=== PATIENT | male | born 1950 | race Caucasian/White ===

== ENCOUNTER 2022-09-05 10:45 | Day surgery (SDC) | payer OTHER ==
[~2022-09-05] VITALS: Ht 170.2 cm; Wt 76.3 kg
[~2022-09-05 10:45] MED LIST: ACETAMINOPHEN 500 MG TABLET PO ONE; CEFAZOLIN SOD 2 GM in D5W 50 ML IV ONE; GABAPENTIN 300 MG CAPSULE PO ONE
[2022-09-05] MEDS ORDERED: ACETAMINOPHEN 500 MG TABLET ONE (11:41)
[2022-09-05] MEDS ORDERED: GABAPENTIN 300 MG CAPSULE ONE (11:41)
[2022-09-05] MEDS ORDERED: NS IRRIG SOLN 1000 ML IR ONE (13:00)
[2022-09-05] MEDS ORDERED: ePHEDrine sulfate 50 MG/ML VIAL ONE (13:00)
[2022-09-05] MEDS ORDERED: SEVOFLURANE 15 MIN GAS INH ONE (13:00)
[2022-09-05] MEDS ORDERED: fentaNYL CITRATE/PF 100 MCG/2 ML AMP ONE (13:00)
[2022-09-05] MEDS ORDERED: ONDANSETRON HCL 4 MG/2 ML VIAL ONE (13:00)
[2022-09-05] MEDS ORDERED: ROCURONIUM BROMIDE 10 MG/ML (ZEMURON) ONE (13:00)
[2022-09-05] MEDS ORDERED: DEXAMETHASONE SOD PHOSPHATE 4 MG/ML VIAL ONE (13:00)
[2022-09-05] MEDS ORDERED: PROPOFOL 200MG/ 20ML VIAL (DIPRIVAN) IV ONE (13:00)
[2022-09-05] MEDS ORDERED: LR 1,000 ML IV.SOLN IV ONE (13:00)
[2022-09-05] MEDS ORDERED: SUGAMMADEX SODIUM 200 MG/2 ML VIAL IV ONE (13:00)
[2022-09-05 13:38] VITALS: O2SAT 98
[2022-09-05] MEDS ORDERED: LIDOCAINE/EPI MPF 1%1:200000 30 ML VIAL INJ ONE (13:40)
[2022-09-05] MEDS ORDERED: BUPIVACAINE /PF 0.25% 30 ML VIAL INJ ONE (13:42)
[2022-09-05] MEDS ORDERED: CEFAZOLIN SOD 2 GM in D5W 50 ML IV SCH (14:00)
[2022-09-05] MEDS ORDERED: hydrALAZINE HCL 20 MG/ML VIAL IVP ONE (14:45)
[2022-09-05] MEDS ORDERED: hydrALAZINE HCL 20 MG/ML VIAL ONE (14:52)
[2022-09-05 17:16] VITALS: BP_SYST 159; PULSE 75; RESP 18
== END 2022-09-05 17:10 | disposition home or self-care (01) ==
LOC: SDS 10:45 → SMU 10:46 → SDS 17:10
PROVIDERS: ATTEND Surgery
DX: K42.0 Umbilical hernia with obstruction, without gangrene (principal); I12.0 Hypertensive chronic kidney disease with stage 5 chronic kidney disease or end stage renal disease; N18.5 Chronic kidney disease, stage 5; K21.9 Gastro-esophageal reflux disease without esophagitis; Z79.899 Other long term (current) drug therapy
CPT/HCPCS: 87081; 49594; 88302; J3490 ×2; J0690; J1100; J0360; J2405; J2704; J3010; J7060; J7120; C1781